=== PATIENT | female | born 1950 | race Caucasian/White ===

== ENCOUNTER 2017-05-29 01:41 | Emergency (ER) | payer MEDICARE ==
[~2017-05-29] VITALS: Ht 144.8 cm; Wt 56.8 kg
[~2017-05-29 01:41] MED LIST: ALPRAZOLAM0.5 M1 PO; AMLODIPINE5 MG PO; ARTHROTEC 50 OR; BACTRIM DS1 TAB PO; CATAPRES0.1 MG PO; CELEBREX200 MG OR; CEPHALEXIN500 MG OR; CIPRO250 MG OR; CLONIDINE HCL0.2 MG PO; CLONIDINE0.1 MG PO; CLONIDINE0.2 MG OR; FLEXERIL OR; FLEXERIL PO; FLEXERIL5 MG PO; HYDROCHLOROT12.5 M1 OR; HYDROCHLOROT25 MG PO; HYDROCHLOROT50 MG PO; LASIX20 MG OR; LISINOPRIL20 MG PO; LORTAB 10 OR; LORTAB 10-325 M1 TAB PO; LORTAB 5 OR; LORTAB5 PO; MELOXICAM7.5 MG PO; NAPROSYN500 MG PO; PAROXETINE10 MG OR; PERCOCET 5/325M1 TAB PO; TRAMADOL HCL50 MG PO; ULTRAM50 M1 PO; ULTRAM50 MG OR; ULTRAM50 MG PO
[2017-05-29] MEDS ORDERED: TRAMADOL HYDROC50 MG PO (01:53)
[2017-05-29] MEDS ORDERED: XANAX0.5 MG PO (02:03)
[2017-05-29 02:27] LABS: HEMATOCRIT 43.3 % (37.0-47.0); HEMOGLOBIN 14.4 g/dl (12.0-16.0); IMMATURE GRANULOCYTES 0.4 % (0.0-1.0); MEAN CELL VOLUME 89.8 fL CALC (80.0-100.0); MEAN CORPUSCULAR HGB 29.9 pG CALC (26.0-32.0); MEAN CORPUSCULAR HGB CONC 33.3 g/L CALC (32.0-36.0); NEUT# 4.36 thou/uL (2.00-7.15); RED BLOOD COUNT 4.82 mill/uL (4.20-5.60); RED CELL DISTRI WIDTH 13.6 % (11.5-15.5); URINE BILIRUBIN - DIPSTICK NEGATIVE (NEGATIVE); URINE BLOOD DIPSTICK SMALL (NEGATIVE); URINE CLARITY CLEAR; URINE COLOR YELLOW; URINE GLUCOSE - DIPSTICK NEGATIVE (NEGATIVE); URINE KETONE NEGATIVE (NEGATIVE); URINE LEUK ESTERASE NEGATIVE (NEGATIVE); URINE NITRITE - DIPSTICK NEGATIVE (Negative); URINE PROTEIN - DIPSTICK NEGATIVE (NEG-TRACE); URINE SPECIFIC GRAVITY <=1.005; URINE UROBILINOGEN - DIPSTICK 0.2 E.U./dL (0.2)
[2017-05-29 02:38] LABS: ALBUMIN 4.6 g/dL (3.2-5.0); ALKALINE PHOSPHATASE 301 u/l (38-126); AMYLASE 201 u/l (30-110); ANION GAP 20 (6-22 (CALC)); BILIRUBIN, TOTAL 0.6 mg/dL (0.0-1.4); BUN 17 mg/dL (8-23); BUN/CREATININE RATIO 17 (12-20 (CALC)); CALCIUM 10.4 mg/dL (8.4-10.2); CARBON DIOXIDE 28 mmol/l (22-30); CHLORIDE 99 mmol/l (95-108); GFR 55 ML/MIN (>=60 (CALC)); GFR FOR AFR.AMER. > 60 ML/MIN (>=60 (CALC)); GLUCOSE 118 mg/dL (82-115); LIPASE 186 u/l (23-300); POTASSIUM 3.9 mmol/l (3.5-5.1); SGOT/AST 53 u/l (9-36); SGPT/ALT 32 u/l (11-66); SODIUM 144 mmol/l (137-146); TOTAL PROTEIN 9.3 g/dL (6.3-8.2)
[2017-05-29 02:39] LABS: URINE WBC 0-2 WBC/hpf (0-5)
[2017-05-29 02:40] LABS: URINE BACTERIA RARE hpf
[2017-05-29 02:47] LABS: MYOGLOBIN 106 ng/mL (0 - 62)
[2017-05-29 03:04] LABS: INTERNATIONAL NORMALIZED RATIO 0.9 RATIO (0.7-1.3); PROTHROMBIN TIME 9.8 SECONDS (9.0-12.5)
[2017-05-29 06:37] VITALS: BP 163/78
== END 2017-05-29 06:37 | disposition short-term general hospital (02) ==
LOC: ED 01:41
PROVIDERS: Emergency Medicine
DX: K92.2 Gastrointestinal hemorrhage, unspecified (principal); R10.13 Epigastric pain; I10 Essential (primary) hypertension; R11.2 Nausea with vomiting, unspecified; K44.9 Diaphragmatic hernia without obstruction or gangrene; K42.9 Umbilical hernia without obstruction or gangrene
CPT/HCPCS: Q9967; S0164

== ENCOUNTER 2018-04-29 20:02 | Emergency (ER) | payer MEDICARE ==
[~2018-04-29] VITALS: Ht 144.8 cm; Wt 55.6 kg
[~2018-04-29 20:02] MED LIST changes: +TRAMADOL HYDROC50 MG PO; +XANAX0.5 MG PO
[2018-04-29] MEDS ORDERED: NORVASC PO (20:16)
[2018-04-29] MEDS ORDERED: AMLODIPINE BESYL5 MG PO (20:51)
[2018-04-29] MEDS ORDERED: PREDNISONE20 MG PO (20:51)
[2018-04-29] MEDS ORDERED: MELOXICAM15 MG PO (20:51)
[2018-04-29] MEDS ORDERED: NAPROSYN500 MG PO (21:59)
[2018-04-29 22:15] VITALS: BP 185/93
== END 2018-04-29 22:15 | disposition home or self-care (01) ==
LOC: ED 20:02
DX: M54.5 Low back pain (principal); I10 Essential (primary) hypertension; M79.605 Pain in left leg; X50.0XXA Overexertion from strenuous movement or load, initial encounter; Y93.E9 Activity, other interior property and clothing maintenance; Y92.009 Unspecified place in unspecified non-institutional (private) residence as the place of occurrence of the external cause